=== PATIENT | male | born 1985 | race Caucasian/White ===

== ENCOUNTER 2016-05-05 11:38 | Emergency (ER) | payer OTHER ==
--- NOTE | 2016-05-05 13:06 | UC ---
Skin Complaint HPI - HPI Summary HPI Summary: patient has had multiple red reaised spots appear on neck and stomach. they are raised, itchy and scaly. - History of Current Complaint Time Seen by Provider: 05/05/16 12:53 Stated Complaint: SKIN COMPLAINT Hx Obtained From: Patient Onset/Duration: Sudden Onset, Lasting Weeks Timing: Constant Onset Severity: Mild Current Severity: Moderate Pain Intensity: 4 Pain Scale Used: 0-10 Numeric Location: Discrete Character: Pruritus, Redness, Raised Aggravating: Nothing Alleviating: Nothing - Allergy/Home Medications Allergies/Adverse Reactions: Allergies Allergy/AdvReac Type Severity Reaction Status Date / Time No Known Allergies Allergy Verified 04/04/16 13:13 Review of Systems Constitutional: Negative Skin: Rash - discreet red spots Eyes: Negative ENT: Negative Respiratory: Negative Cardiovascular: Negative Gastrointestinal: Negative Genitourinary: Negative Motor: Negative Neurovascular: Negative Musculoskeletal: Negative Neurological: Negative Psychological: Negative All Other Systems Reviewed And Are Negative: Yes PMH/Surg Hx/FS Hx/Imm Hx Previously Healthy: Yes Endocrine History Of: Denies: Diabetes, Thyroid Disease, Hyperthyroidism, Hypothyroidism, Dyslipidemia Cardiovascular History Of: Denies: Cardiac Disorders, Hypertension, Pacemaker/ICD, Myocardial Infarction , Congestive Heart Failure, Atrial Fibrillation, Deep Vein Thrombosis, Bleeding Disorders Respiratory History Of: Denies: COPD, Asthma, Bronchitis, Pneumonia, Pulmonary Embolism GI/ History Of: Denies: Gastroesophageal Reflux, Ulcer, Gastrointestinal Bleed, Gall Bladder Disease, Kidney Stones, Diverticulitis, Renal Disease, Urosepsis Neurological History Of: Denies: TIA, CVA, Dementia, Seizures, Migraine Psychological History Of: Denies: Anxiety, Depression, Bipolar Disorder, Schizophrenia, Post Traumatic Stress Disorder Cancer History Of: Denies: Lung Cancer, Colorectal Cancer, Breast Cancer, Prostate Cancer, Cervical Cancer - Surgical History Surgical History: None - Family History Known Family History: Positive: None, Other - Cancer Negative: Cardiac Disease, Hypertension, Diabetes - Social History Alcohol Use: Occasionally Substance Use Type: None Smoking Status (MU): Never Smoked Tobacco Have You Smoked in the Last Year: No Physical Exam Triage Information Reviewed: Yes Appearance: Well-Appearing, Well-Nourished, Pain Distress Vital Signs Reviewed: Yes Eye Exam: Normal Eyes: Positive: Conjunctiva Clear ENT Exam: Normal ENT: Positive: Normal ENT inspection, Pharynx normal, TMs normal Dental Exam: Normal Neck exam: Normal Neck: Positive: Supple, Nontender, No Lymphadenopathy Respiratory Exam: Normal Respiratory: Positive: Chest non-tender, Lungs clear, Normal breath sounds Cardiovascular: Positive: RRR, No Murmur, Pulses Normal Abdominal Exam: Normal Abdomen Description: Positive: Nontender, No Organomegaly, Soft Bowel Sounds: Positive: Present Musculoskeletal Exam: Normal Musculoskeletal: Positive: Strength Intact, ROM Intact, No Edema Neurological Exam: Normal Neurological: Positive: Alert, Muscle Tone Normal Psychological Exam: Normal Skin: Positive: significant lesion(s) - 3-4 areas of redness and raised scaling Course/Dx - Differential Diagnoses - Skin Complaint Differential Diagnoses: Contact Dermatitis, Eczema - Diagnoses Provider Diagnoses: ezcema Discharge - Discharge Plan Condition: Stable Disposition: HOME Patient Education Materials: Eczema (ED) Additional Instructions: use the prescribed cream twice a day for 2 weeks. Change current soap to something more sensitive like dove or ivory. Drink plenty of fluids to stay hydrated.
[2016-05-05 13:08] VITALS: BP 129/68
== END 2016-05-05 13:20 | disposition home or self-care (01) ==
LOC: UCCORT 11:38
DX: L30.8 Other specified dermatitis (principal)
CPT/HCPCS: 99212; G0463